=== PATIENT | male | born 1955 | race Caucasian/White ===

== ENCOUNTER 2017-08-17 10:36 | Inpatient (IN) | payer SELFPAY ==
[~2017-08-17] VITALS: Ht 170.2 cm; Wt 66.3 kg
[2017-08-17 11:11] LABS: BASO # 0.1 x10^3/uL (0.0-0.2); BASO % 0 % (0-3); EOS # 0.6 x10^3/uL (0.0-0.7); EOS % 3 % (0-3); HEMATOCRIT 40.1 % (39.0-53.0); LYMPH % 43 % (24-48); MEAN CORPUSCULAR HEMOGLOBIN 28 pg (25-35); MEAN CORPUSCULAR HGB CONC 32 g/dL (31-37); MEAN CORPUSCULAR VOLUME 85 fL (79-100); MONO % 5 % (0-9); NEUT # 8.8 x10^3uL (1.8-7.7); NEUT % 48 % (31-73); PLATELET COUNT 349 x10^3/uL (140-400); RED BLOOD COUNT 4.74 x10^6/uL (4.30-5.70); RED CELL DISTRIBUTION WIDTH 17.4 % (11.5-14.5); WHITE BLOOD COUNT 18.5 x10^3/uL (4.0-11.0)
[2017-08-17 11:15] LABS: HEMOGLOBIN ISTAT 13.3 gm/dL; POTASSIUM ISTAT 4.2 mmol/L (3.5-5.0)
--- NOTE | 2017-08-17 11:22 | EKG ---
[address] [address] Test Date: 2017-08-17 Test Time: 11:17:58 Pat Name: JHON MATHEW Department: Room: Gender: M Bolt Cutter: BOUBACAR : 1955 Requested By: DEMI DAVIS Order Number: [id number] Reading MD: Measurements Intervals [place] Rate: 58 P: 43 MD: 156 QRS: -26 QRSD: 88 T: 18 QT: 424 QTc: 420 Interpretive Statements SINUS RHYTHM LEFTWARD AXIS QRS(T) CONTOUR ABNORMALITY CONSIDER ANTEROSEPTAL MYOCARDIAL DAMAGE POSSIBLY ABNORMAL ECG RI6.01 No previous ECG available for comparison
[2017-08-17 11:54] LABS: % BANDS 1 % (0-9); % EOS 2 % (0-5); % LYMPHS 14 % (24-48); % MONOS 4 % (0-10); % SEGS 49 % (35-66); PLT ESTIMATE ADEQUATE (ADEQUATE)
[2017-08-17 11:55] LABS: PLATELET CLUMP PRESENT
[2017-08-17 12:13] LABS: BACTERIA,URINE 0 /HPF (0-FEW); BILIRUBIN,URINE NEG (NEG); CLARITY,URINE CLEAR; COLOR,URINE AMBER; GLUCOSE,URINE NEG (NEG); NITRITE,URINE NEG (NEG); RBC,URINE OCC /HPF (0-2); SQUAMOUS EPITHELIAL CELL,UR OCC /LPF; UROBILINOGEN,URINE 0.2 mg/dL (0.2 mg/dL); WBC,URINE 0 /HPF (0-4)
--- NOTE | 2017-08-17 13:03 | RAD ---
CHEST AP ONLY History: COUGH FOR A FEW WEEKS Comparison: None. Findings: Single view of the chest is submitted. Tip of the left costophrenic sulcus was not included on this exam. There is no infiltrate, pneumothorax, or effusion. The pericardial cardiac silhouette is within normal limits in size. Small symmetric opacities of the bilateral inferior hemithoraces are more likely due to nipple shadows than lung nodules. Impression: 1. There is no radiographic evidence of acute cardiopulmonary disease. Small opacities of the inferior hemithoraces bilaterally are likely due to nipple shadows than lung nodules. Electronically signed by: Savage Figueroa MD (08/17/2017 1:00 PM) [id number]
[2017-08-17 14:29] VITALS: BP 114/71
[2017-08-17] MEDS ORDERED: MAG HYDROX/AL HYDROX/SIMETH 30 ML ORAL.SUSP PO PRN (14:45)
[2017-08-17] MEDS ORDERED: ACETAMINOPHEN 325 MG TABLET PO PRN (14:45)
[2017-08-17] MEDS ORDERED: MAGNESIUM HYDROXIDE 2,400 MG/30 ML ORAL.SUSP. PO PRN (14:45)
[2017-08-17] MEDS ORDERED: METHYL SALICYLATE/MENTHOL TOPICAL OINTMENT 29GM TUBE. TP PRN (14:45)
[2017-08-17] MEDS ORDERED: TRAZ50TA15 PO (15:12)
[2017-08-17] MEDS ORDERED: FURO20TA3 PO (15:12)
[2017-08-17] MEDS ORDERED: LEVE500T56 PO (15:12)
[2017-08-17] MEDS ORDERED: ASPI-630 PO (15:12)
[2017-08-17] MEDS ORDERED: CARV6.252 PO (15:12)
[2017-08-17] MEDS ORDERED: pancrelipase PEG (15:12)
[2017-08-17] MEDS ORDERED: LISI10TA2 PO (15:12)
[2017-08-17] MEDS ORDERED: ESCITALOPRAM OX10 MG PO (15:12)
[2017-08-17] MEDS ORDERED: IPRA3AMP NEB (15:12)
[2017-08-17] MEDS ORDERED: ATOR10TA60 PO (15:12)
[2017-08-17] MEDS ORDERED: NUTR250L51 PO (15:12)
[2017-08-17] MEDS ORDERED: BUSP5TAB PO (15:12)
[2017-08-17 15:23] LABS: ALBUMIN 3.4 g/dL (3.4-5.0); DIRECT BILIRUBIN 0.1 mg/dL (0.0-0.2); MAGNESIUM 2.3 mg/dL (1.8-2.4); TOTAL BILIRUBIN 0.7 mg/dL (0.2-1.0); TOTAL PROTEIN 7.8 g/dL (6.4-8.2)
--- NOTE | 2017-08-17 16:01 | RAD ---
CT scan of the head without contrast 08/17/2017 Clinical History: Mental status changes. Recent fall. Technique: Unenhanced, contiguous, 5 mm axial sections were obtained through the head. One or more of the following individualized dose reduction techniques were utilized for this study: 1. Automated exposure control. 2. Adjustment of the mA and/or kV according to patient size. 3. Use of iterative reconstruction technique. Findings: No previous imaging studies are available for comparison. There is generalized parenchymal atrophy. Areas of decreased attenuation are seen within the periventricular and subcortical white matter of both cerebral hemispheres consistent with areas of small vessel ischemic disease. No acute parenchymal abnormality is seen. No extra-axial fluid collection is noted. No skull fracture is seen. Impression:. No acute intracranial abnormality is seen. Electronically signed by: Cj Alexandra MD (08/17/2017 3:58 PM) [facility]
[2017-08-17 16:23] VITALS: BP 103/65
--- NOTE | 2017-08-17 16:35 | ED.ADGEN ---
Past History Past Medical History: Anxiety, COPD, CVA, Hypertension, Other Past Surgical History: Other Alcohol Use: Rarely Drug Use: None Adult General Chief Complaint Chief Complaint Medical screening for psychiatric admission HPI HPI Patient is a 62-year-old male without medical complaint presents for medical screening evaluation for psychiatric admission. Patient reportedly is recently [facility] to [facility] and is having a difficult time adjusting. He has made comments to staff and family members that he plans on killing himself. Patient denies any such thoughts or intent at this time. He has a history of recent pneumonia, C. difficile infection and chronic leukemia. He denies diarrhea, abdominal pain. No fevers chills or sweats. Denies dizziness lightheadedness. reports chronic cough. No shortness of breath. No urinary frequency or dysuria. Patient has a feeding tube in place.No acute medical symptoms or complaints [] Review of Systems Review of Systems Review symptoms as per history of present illness. All other review symptoms are negative All other systems were reviewed and found to be within normal limits, except as documented in this note. Allergies Allergies Allergies Coded Allergies Type Severity Reaction Last Updated Verified No Known Drug Allergies 08/17/17 No Physical Exam Physical Exam Constitutional: Well developed, well nourished, no acute distress, non-toxic appearance. [] HENT: Normocephalic, atraumatic, bilateral external ears normal, oropharynx moist, nose normal. [] Eyes: PERRLA, EOMI, conjunctiva normal, no discharge. [] Neck: Normal range of motion, no midline tenderness, supple. [] Cardiovascular:Regular rate and rhythm. [] Lungs & Thorax: Bilateral breath sounds clear to auscultation [] Abdomen: Bowel sounds normal, soft, no tenderness. [] Skin: Warm, dry. [] Back: No tenderness, no CVA tenderness. [] Extremities: No tenderness, no edema. [] Neurologic: Alert and oriented X 2, normal motor function, normal sensory function, no focal deficits noted. [] Psychologic: Affect normal, judgement normal, mood normal. [] Current Patient Data Vital Signs Vital Signs Date Time Temp Pulse Resp B/P (MAP) Pulse Ox O2 Delivery O2 Flow Rate FiO2 08/17/17 13:26 76 18 131/62 (85) 93 Room Air 08/17/17 10:36 98.0 Lab Results Laboratory Tests Test 08/17/17 11:02 08/17/17 11:11 08/17/17 11:46 White Blood Count 18.5 x10^3/uL (4.0-11.0) H Red Blood Count 4.74 x10^6/uL (4.30-5.70) Hemoglobin 13.0 g/dL (13.0-17.5) Hematocrit 40.1 % (39.0-53.0) Mean Corpuscular Volume 85 fL (79-100) Mean Corpuscular Hemoglobin 28 pg (25-35) Mean Corpuscular Hemoglobin Concent 32 g/dL (31-37) Red Cell Distribution Width 17.4 % (11.5-14.5) H Platelet Count 349 x10^3/uL (140-400) Neutrophils (%) (Auto) 48 % (31-73) Lymphocytes (%) (Auto) 43 % (24-48) Monocytes (%) (Auto) 5 % (0-9) Eosinophils (%) (Auto) 3 % (0-3) Basophils (%) (Auto) 0 % (0-3) Neutrophils # (Auto) 8.8 x10^3uL (1.8-7.7) H Lymphocytes # (Auto) 8.0 x10^3/uL (1.0-4.8) H Monocytes # (Auto) 1.0 x10^3/uL (0.0-1.1) Eosinophils # (Auto) 0.6 x10^3/uL (0.0-0.7) Basophils # (Auto) 0.1 x10^3/uL (0.0-0.2) Segmented Neutrophils % 49 % (35-66) Band Neutrophils % 1 % (0-9) Lymphocytes % 14 % (24-48) L Atypical Lymphocytes % (Manual) 30 % (0-0) H Monocytes % 4 % (0-10) Eosinophils % 2 % (0-5) Platelet Estimate Adequate (ADEQUATE) Platelet Clumps, EDTA Present Magnesium Level 2.3 mg/dL (1.8-2.4) Total Bilirubin 0.7 mg/dL (0.2-1.0) Direct Bilirubin 0.1 mg/dL (0.0-0.2) Aspartate Amino Transferase (AST) 31 U/L (15-37) Alanine Aminotransferase (ALT) 45 U/L (16-63) Alkaline Phosphatase 115 U/L (46-116) Total Protein 7.8 g/dL (6.4-8.2) Albumin 3.4 g/dL (3.4-5.0) POC Hemoglobin 13.3 gm/dL POC Hematocrit 39 % POC Sodium 143 mmol/L (135-145) POC Potassium 4.2 mmol/L (3.5-5.0) POC Chloride 104 mmol/L (98-110) POC Total CO2 31 mmol/L (23-32) Anion Gap 13 mmol/L (6-14) POC Blood Urea Nitrogen 23 mg/dL (8-26) POC Creatinine 1.4 mg/dL (0.5-1.4) Glucose Level 104 mg/dL (60-99) H POC Ionized Calcium (Lora) 1.19 mmol/L (1.13-1.32) Urine Collection Type Unknown Urine Color Carina Urine Clarity Clear Urine pH 6.0 Urine Specific [place] 1.025 Urine Protein 30 mg/dl (NEG-TRACE) Urine Glucose (UA) Neg mg/dL (NEG) Urine Ketones (Stick) Neg mg/dL (NEG) Urine Blood Trace (NEG) Urine Nitrite Neg (NEG) Urine Bilirubin Neg (NEG) Urine Urobilinogen Dipstick 0.2 mg/dL (0.2 mg/dL) Urine Leukocyte Esterase Neg (NEG) Urine RBC Occ /HPF (0-2) Urine WBC 0 /HPF (0-4) Urine Squamous Epithelial Cells Occ /LPF Urine Bacteria 0 /HPF (0-FEW) Urine Cellular Casts Occ /HPF Urine Mucus Mod /LPF EKG EKG [EKG: reviewed no acute ST-T wave changes] Radiology/Procedures Radiology/Procedures [Chest x-ray: No acute findings per radiology report.] Course & Med Decision Making Course & Med Decision Making Pertinent Labs and Imaging studies reviewed. (See chart for details) [Patient with chronic cough history of leukemia. Noted to have elevated white blood cell count. Patient afebrile with stable vital signs. Patient's white blood cell count was disproportionate to possible urinary tract infectionor cough. Case reviewed with Dr. Boggs who will follow the patient on [facility].] Final Impression Final Impression [1. Medical screening exam 2. Leukocytosis 3. Ho/ leukemia] Problems: Dragon Disclaimer Dragon Disclaimer This electronic medical record was generated, in whole or in part, using a voice recognition dictation system. DEMI DAVIS DO Aug 17, 2017 16:35
--- NOTE | 2017-08-17 18:19 | PDOC ---
Exam Note: Robson Note: Please also refer to the separate dictated note~for this date of service dictated separately.~Patient seen individually. Discussed the patient with Nursing staff reviewed the chart.~Reviewed interim history and current functioning. Reviewed vital signs,~Labs/ Radiology~and current medications noted below. Continue current treatment with the changes noted in the dictated addendum note Assessment: Vital Signs: Vital Signs Date Time Temp Pulse Resp B/P (MAP) Pulse Ox O2 Delivery O2 Flow Rate FiO2 08/17/17 16:23 97.3 66 19 103/65 (78) 98 08/17/17 13:26 Room Air Labs: Laboratory Tests Test 08/17/17 11:02 08/17/17 11:11 08/17/17 11:46 White Blood Count 18.5 x10^3/uL (4.0-11.0) H Red Blood Count 4.74 x10^6/uL (4.30-5.70) Hemoglobin 13.0 g/dL (13.0-17.5) Hematocrit 40.1 % (39.0-53.0) Mean Corpuscular Volume 85 fL (79-100) Mean Corpuscular Hemoglobin 28 pg (25-35) Mean Corpuscular Hemoglobin Concent 32 g/dL (31-37) Red Cell Distribution Width 17.4 % (11.5-14.5) H Platelet Count 349 x10^3/uL (140-400) Neutrophils (%) (Auto) 48 % (31-73) Lymphocytes (%) (Auto) 43 % (24-48) Monocytes (%) (Auto) 5 % (0-9) Eosinophils (%) (Auto) 3 % (0-3) Basophils (%) (Auto) 0 % (0-3) Neutrophils # (Auto) 8.8 x10^3uL (1.8-7.7) H Lymphocytes # (Auto) 8.0 x10^3/uL (1.0-4.8) H Monocytes # (Auto) 1.0 x10^3/uL (0.0-1.1) Eosinophils # (Auto) 0.6 x10^3/uL (0.0-0.7) Basophils # (Auto) 0.1 x10^3/uL (0.0-0.2) Segmented Neutrophils % 49 % (35-66) Band Neutrophils % 1 % (0-9) Lymphocytes % 14 % (24-48) L Atypical Lymphocytes % (Manual) 30 % (0-0) H Monocytes % 4 % (0-10) Eosinophils % 2 % (0-5) Platelet Estimate Adequate (ADEQUATE) Platelet Clumps, EDTA Present Magnesium Level 2.3 mg/dL (1.8-2.4) Total Bilirubin 0.7 mg/dL (0.2-1.0) Direct Bilirubin 0.1 mg/dL (0.0-0.2) Aspartate Amino Transferase (AST) 31 U/L (15-37) Alanine Aminotransferase (ALT) 45 U/L (16-63) Alkaline Phosphatase 115 U/L (46-116) Total Protein 7.8 g/dL (6.4-8.2) Albumin 3.4 g/dL (3.4-5.0) POC Hemoglobin 13.3 gm/dL POC Hematocrit 39 % POC Sodium 143 mmol/L (135-145) POC Potassium 4.2 mmol/L (3.5-5.0) POC Chloride 104 mmol/L (98-110) POC Total CO2 31 mmol/L (23-32) Anion Gap 13 mmol/L (6-14) POC Blood Urea Nitrogen 23 mg/dL (8-26) POC Creatinine 1.4 mg/dL (0.5-1.4) Glucose Level 104 mg/dL (60-99) H POC Ionized Calcium (Lora) 1.19 mmol/L (1.13-1.32) Urine Collection Type Unknown Urine Color Carina Urine Clarity Clear Urine pH 6.0 Urine Specific [place] 1.025 Urine Protein 30 mg/dl (NEG-TRACE) Urine Glucose (UA) Neg mg/dL (NEG) Urine Ketones (Stick) Neg mg/dL (NEG) Urine Blood Trace (NEG) Urine Nitrite Neg (NEG) Urine Bilirubin Neg (NEG) Urine Urobilinogen Dipstick 0.2 mg/dL (0.2 mg/dL) Urine Leukocyte Esterase Neg (NEG) Urine RBC Occ /HPF (0-2) Urine WBC 0 /HPF (0-4) Urine Squamous Epithelial Cells Occ /LPF Urine Bacteria 0 /HPF (0-FEW) Urine Cellular Casts Occ /HPF Urine Mucus Mod /LPF Current Medications: Meds: Current Medications Acetaminophen (Tylenol) 650 mg PRN Q6HRS PRN PO PAIN / TEMP; Start 08/17/17 at 14:45 Multi-Ingredient Ointment (Analgesic [place]) 1 merline PRN QID PRN TP MUSCLE PAIN; Start 08/17/17 at 14:45 Al Hydroxide/Mg Hydroxide (Mylanta Plus Xs) 15 ml PRN AFTMEALHC PRN PO DYSPEPSIA; Start 08/17/17 at 14:45 Magnesium Hydroxide (Milk Of Magnesia) 2,400 mg PRN QHS PRN PO CONSTIPATION; Start 08/17/17 at 14:45 Buspirone HCl (Buspar) 5 mg Q8HRS PO ; Start 08/17/17 at 22:00 Levetiracetam (Keppra) 500 mg BID PO ; Start 08/17/17 at 21:00 Trazodone HCl (Desyrel) 50 mg QHS PO ; Start 08/17/17 at 21:00 Non-Formulary Medication (Escitalopram Oxalate ) 1 tab DAILY PO ; Start at 09:00; Stop 08/18/17 at 09:00; Status DC Citalopram Hydrobromide (CeleXA) 20 mg DAILY PO ; Start 08/18/17 at 09:00 Active Scripts Active Reported Nutren 2.0 (Nutritional Supplement) 250 Ml Liquid 237 Ml PO PRN AFTMEAL PRN 237mL via PEG tube prn for Nutritional Replacement Give only after meals if patient eats <50% of Meal Trazodone Hcl 50 Mg Tablet 1 Tab PO QHS [pancrelipase] 5000 Unit Tablet 10,000 Units PEG PRN PRN Give 2 capsules via PEG tube as needed for PEG Tube blockage. Lisinopril 10 Mg Tablet 1 Tab PO DAILY Escitalopram Oxalate 10 Mg Tablet 1 Tab PO DAILY Furosemide 20 Mg Tablet 1 Tab PO DAILY Keppra (Levetiracetam) 500 Mg Tablet 1 Tab PO BID Duoneb 0.5-3(2.5) Mg/3 Ml (Albuterol/Ipratropium) 3 Ml Ampul.neb 3 Ml NEB BID Carvedilol 6.25 Mg Tablet 1 Tab PO BID Buspirone Hcl 5 Mg Tablet 1 Tab PO Q8HRS Atorvastatin Calcium 10 Mg Tablet 10 Mg PO DAILY Aspirin 81 Mg Tab.chew 81 Mg PO DAILY I have reviewed the current psychotropics carefully including drug interactions. Risk benefit ratio favors no change other than as noted in my dictated progress note. Diagnosis: Problems: (1) Anxiety disorder (2) Major depressive disorder, recurrent episode BRANT BANUELOS MD Aug 17, 2017 18:19
--- NOTE | 2017-08-17 19:00 | HP ---
ADMIT DATE: 08/17/2017 PSYCHIATRIC ADMISSION HISTORY AND EVALUATION IDENTIFYING DATA: The patient is a 62-year-old male referred to us from [facility] on account of worsening symptoms of depression after the patient voiced suicidal ideation. Reportedly, he told his he was going to shoot himself. The detention had placed him on one-on-one status. Even though he did not have a gun available to shoot himself, the family believed he would find other means to end his life. This has what prompted the referral for admission. CHIEF COMPLAINT: "Yes, I have been depressed." The patient, however, minimizes suicidal ideation. HISTORY OF PRESENT ILLNESS: The patient relates symptoms of depression, feeling hopeless, helpless, worthless, but minimizes the suicidal ideation that prompted this admission. Nevertheless, he had made the above statements and plan as noted. He has had some sleep and appetite changes. Much of his worsening mood symptoms correlate with his worsening physical health, status post CVA, cerebral infarct, resultant dysphagia and PEG tube placement. No active homicidal ideation. No clear history of bipolar disorder. He does have short term memory deficits. PAST PSYCHIATRIC HISTORY: Positive for depression, anxiety. PAST MEDICAL HISTORY: Status post CVA, dysphagia, COPD, cachexia, recent C. diff from which he has recovered, and history of PEG tube. CODE STATUS: Full code. DRUG ALLERGIES: Negative. PRIMARY CARE PHYSICIAN: ____. SOCIAL HISTORY: No alcohol or drug abuse, physical, sexual or elder abuse history is noted. He is not known to be a perpetrator. He self propels himself in a wheelchair. DIET: Mechanical soft and he has been residing at the above facility for just about a week. REACTION TO HOSPITALIZATION: The patient accepting of it. ASSETS: Supportive family, stable living at the above facility. MENTAL STATUS EXAM: The patient was seen individually evening of 08/17/2017. He is in his wheelchair, oriented to himself. Speech: Moderate latency, often responses monosyllabic. Abstraction fair, computation impaired, language function intact, attention span short. Mood and affect depressed. He denies active suicidal ideation, somewhat paranoid. No hallucinations. IMPRESSION: Major depressive disorder, rule out psychotic features, recurrent; anxiety disorder, unspecified; impulse control disorder. Rest as above. PLAN: Admit to Geropsychiatry Unit at [facility]. I will see the patient daily individually from a psychiatric standpoint, medical followup per Dr. Boggs/Dr French. Continue the patient on his current psychotropics including trazodone 50 mg at bedtime, Celexa 20 mg a day, BuSpar 5 mg q.8 hours. We will observe him baseline, then make adjustments as clinically indicated. BRANT BANUELOS MD DR: GREG/nadia JOB#: [id number] / [id number]
[2017-08-17] MEDS ORDERED: NUTRITIONAL SUPPLEMENT PO PRN (19:30)
[2017-08-17] MEDS: CARVEDILOL 6.25 MG TABLET PO SCH (20:09)
[2017-08-17] MEDS: levETIRAcetam 500 MG TABLET PO SCH (20:09)
[2017-08-17] MEDS: traZODone 50 MG TABLET. PO SCH (20:09)
[2017-08-17] MEDS: busPIRone 5 MG TABLET. PO SCH (20:40)
--- NOTE | 2017-08-17 21:13 | PDOC ---
Exam Note: Robson Note: Please also refer to the separate dictated note~for this date of service dictated separately.~Patient seen individually. Discussed the patient with Nursing staff reviewed the chart.~Reviewed interim history and current functioning. Reviewed vital signs,~Labs/ Radiology~and current medications noted below. Continue current treatment with the changes noted in the dictated addendum note Assessment: Vital Signs: Vital Signs Date Time Temp Pulse Resp B/P (MAP) Pulse Ox O2 Delivery O2 Flow Rate FiO2 08/17/17 20:09 66 103/65 08/17/17 16:23 97.3 19 98 08/17/17 13:26 Room Air Labs: Laboratory Tests Test 08/17/17 11:02 08/17/17 11:11 08/17/17 11:46 White Blood Count 18.5 x10^3/uL (4.0-11.0) H Red Blood Count 4.74 x10^6/uL (4.30-5.70) Hemoglobin 13.0 g/dL (13.0-17.5) Hematocrit 40.1 % (39.0-53.0) Mean Corpuscular Volume 85 fL (79-100) Mean Corpuscular Hemoglobin 28 pg (25-35) Mean Corpuscular Hemoglobin Concent 32 g/dL (31-37) Red Cell Distribution Width 17.4 % (11.5-14.5) H Platelet Count 349 x10^3/uL (140-400) Neutrophils (%) (Auto) 48 % (31-73) Lymphocytes (%) (Auto) 43 % (24-48) Monocytes (%) (Auto) 5 % (0-9) Eosinophils (%) (Auto) 3 % (0-3) Basophils (%) (Auto) 0 % (0-3) Neutrophils # (Auto) 8.8 x10^3uL (1.8-7.7) H Lymphocytes # (Auto) 8.0 x10^3/uL (1.0-4.8) H Monocytes # (Auto) 1.0 x10^3/uL (0.0-1.1) Eosinophils # (Auto) 0.6 x10^3/uL (0.0-0.7) Basophils # (Auto) 0.1 x10^3/uL (0.0-0.2) Segmented Neutrophils % 49 % (35-66) Band Neutrophils % 1 % (0-9) Lymphocytes % 14 % (24-48) L Atypical Lymphocytes % (Manual) 30 % (0-0) H Monocytes % 4 % (0-10) Eosinophils % 2 % (0-5) Platelet Estimate Adequate (ADEQUATE) Platelet Clumps, EDTA Present Magnesium Level 2.3 mg/dL (1.8-2.4) Total Bilirubin 0.7 mg/dL (0.2-1.0) Direct Bilirubin 0.1 mg/dL (0.0-0.2) Aspartate Amino Transferase (AST) 31 U/L (15-37) Alanine Aminotransferase (ALT) 45 U/L (16-63) Alkaline Phosphatase 115 U/L (46-116) Total Protein 7.8 g/dL (6.4-8.2) Albumin 3.4 g/dL (3.4-5.0) POC Hemoglobin 13.3 gm/dL POC Hematocrit 39 % POC Sodium 143 mmol/L (135-145) POC Potassium 4.2 mmol/L (3.5-5.0) POC Chloride 104 mmol/L (98-110) POC Total CO2 31 mmol/L (23-32) Anion Gap 13 mmol/L (6-14) POC Blood Urea Nitrogen 23 mg/dL (8-26) POC Creatinine 1.4 mg/dL (0.5-1.4) Glucose Level 104 mg/dL (60-99) H POC Ionized Calcium (Lora) 1.19 mmol/L (1.13-1.32) Urine Collection Type Unknown Urine Color Carina Urine Clarity Clear Urine pH 6.0 Urine Specific [place] 1.025 Urine Protein 30 mg/dl (NEG-TRACE) Urine Glucose (UA) Neg mg/dL (NEG) Urine Ketones (Stick) Neg mg/dL (NEG) Urine Blood Trace (NEG) Urine Nitrite Neg (NEG) Urine Bilirubin Neg (NEG) Urine Urobilinogen Dipstick 0.2 mg/dL (0.2 mg/dL) Urine Leukocyte Esterase Neg (NEG) Urine RBC Occ /HPF (0-2) Urine WBC 0 /HPF (0-4) Urine Squamous Epithelial Cells Occ /LPF Urine Bacteria 0 /HPF (0-FEW) Urine Cellular Casts Occ /HPF Urine Mucus Mod /LPF Current Medications: Meds: Current Medications Acetaminophen (Tylenol) 650 mg PRN Q6HRS PRN PO PAIN / TEMP; Start 08/17/17 at 14:45 Multi-Ingredient Ointment (Analgesic [place]) 1 merline PRN QID PRN TP MUSCLE PAIN; Start 08/17/17 at 14:45 Al Hydroxide/Mg Hydroxide (Mylanta Plus Xs) 15 ml PRN AFTMEALHC PRN PO DYSPEPSIA; Start 08/17/17 at 14:45 Magnesium Hydroxide (Milk Of Magnesia) 2,400 mg PRN QHS PRN PO CONSTIPATION; Start 08/17/17 at 14:45 Buspirone HCl (Buspar) 5 mg Q8HRS PO Last administered on 08/17/17at 20:40; Start 08/17/17 at 22:00 Levetiracetam (Keppra) 500 mg BID PO Last administered on 08/17/17at 20:09; Start 08/17/17 at 21:00 Trazodone HCl (Desyrel) 50 mg QHS PO Last administered on 08/17/17at 20:09; Start 08/17/17 at 21:00 Non-Formulary Medication (Escitalopram Oxalate ) 1 tab DAILY PO ; Start at 09:00; Stop 08/18/17 at 09:00; Status DC Citalopram Hydrobromide (CeleXA) 20 mg DAILY PO ; Start 08/18/17 at 09:00 Aspirin (Children'S Aspirin) 81 mg DAILY PO ; Start 08/18/17 at 09:00 Atorvastatin Calcium (Lipitor) 10 mg DAILY PO ; Start 08/18/17 at 09:00 Carvedilol (Coreg) 6.25 mg BID PO Last administered on 08/17/17at 20:09; Start 08/17/17 at 21:00 Furosemide (Lasix) 20 mg DAILY PO ; Start 08/18/17 at 09:00 Albuterol/ Ipratropium (Duoneb) 3 ml BID NEB ; Start 08/17/17 at 21:00 Lisinopril (Prinivil) 10 mg DAILY PO ; Start 08/18/17 at 09:00 Non-Formulary Medication (Nutritional Supplement (Nutren 2.0)) 237 ml PRN AFTMEAL PRN PO PER PROTOCOL; Start 08/17/17 at 19:30; Stop 08/17/17 at 19:37; Status DC Non-Formulary Medication ([pancrelipase] ) 10,000 units PRN PRN PEG PER PROTOCOL ; Start 08/17/17 at 19:30; Status UNV Active Scripts Active Reported Nutren 2.0 (Nutritional Supplement) 250 Ml Liquid 237 Ml PO PRN AFTMEAL PRN 237mL via PEG tube prn for Nutritional Replacement Give only after meals if patient eats <50% of Meal Trazodone Hcl 50 Mg Tablet 1 Tab PO QHS [pancrelipase] 5000 Unit Tablet 10,000 Units PEG PRN PRN Give 2 capsules via PEG tube as needed for PEG Tube blockage. Lisinopril 10 Mg Tablet 1 Tab PO DAILY Escitalopram Oxalate 10 Mg Tablet 1 Tab PO DAILY Furosemide 20 Mg Tablet 1 Tab PO DAILY Keppra (Levetiracetam) 500 Mg Tablet 1 Tab PO BID Duoneb 0.5-3(2.5) Mg/3 Ml (Albuterol/Ipratropium) 3 Ml Ampul.neb 3 Ml NEB BID Carvedilol 6.25 Mg Tablet 1 Tab PO BID Buspirone Hcl 5 Mg Tablet 1 Tab PO Q8HRS Atorvastatin Calcium 10 Mg Tablet 10 Mg PO DAILY Aspirin 81 Mg Tab.chew 81 Mg PO DAILY I have reviewed the current psychotropics carefully including drug interactions. Risk benefit ratio favors no change other than as noted in my dictated progress note. Diagnosis: Problems: (1) Medical clearance for psychiatric admission (2) Anxiety disorder (3) Major depressive disorder, recurrent episode BRANT BANUELOS MD Aug 17, 2017 21:13
[2017-08-17] MEDS: IPRATRPIUM/ALBUTEROL 0.5/2.5MG 3 ML NEBU. NEB SCH (21:35)
--- NOTE | 2017-08-17 23:48 | CONS ---
DATE OF CONSULTATION: 08/17/2017 REASON FOR CONSULTATION: Medical management. HISTORY OF PRESENT ILLNESS:. The pain is a 62-year-old male patient who is a fpc resident at [place] and who apparently told his that he was going to shoot himself. His sister believes that he would find another means and he was admitted to [facility] for inpatient psychiatric stabilization. PAST MEDICAL HISTORY: Significant for right middle cerebral artery territory infarct with left-sided hemiplegia, dysphagia, COPD, cachexia, C. diff colitis. PAST PSYCHIATRIC HISTORY: Significant for major depressive disorder, anxiety, and insomnia. PAST SURGICAL HISTORY: Significant for percutaneous endoscopic gastrostomy tube placement. ALLERGIES: He has no known drug allergies. MEDICATIONS: He is currently on following medications: He is on DuoNeb 0.5-2.5 mg 3 mL by nebulizer 4 times a day, atorvastatin calcium 10 mg at bedtime, carvedilol 6.25 mg twice a day, lisinopril 10 mg once a day, aspirin 81 mg once a day, Keppra 500 mg twice a day, escitalopram oxalate 10 mg once a day, trazodone 50 mg at bedtime, buspirone 5 mg every 8 hours. He is on Nutren 237 mL p.r.n. after meals. He is on furosemide 20 mg once a day, and ____ 10,000 units, he takes 2 capsules as needed. FAMILY HISTORY: Unremarkable. SOCIAL HISTORY: He is , said he has about 12 grandchildren. He is an ex-smoker, quit in 1982. He used to be a pipeline engineer. Does not drink alcohol or use any recreational drugs. PHYSICAL EXAMINATION: GENERAL: When I examined him this afternoon, he looked well and was clearly in no apparent respiratory distress. He was pale, no jaundice, cyanosis, or thyromegaly. No jugular venous distention. No limb edema. VITAL SIGNS: His heart rate was 66, blood pressure 103/65, temperature was 97.3, respiratory rate was 19, and oxygen saturation was 98%. HEAD, EYES, EARS, NOSE, AND THROAT: Normocephalic, atraumatic. NECK: Supple. HEART: Showed normal first and second heart sounds with no gallop, rub, or murmur. CHEST: Clear to auscultation. No crepitation or rhonchi. ABDOMEN: Distended, soft, nontender. No guarding or rigidity. No organomegaly. All hernial orifice intact. Bowel sounds normal. NEUROLOGIC: He was awake, alert, responding appropriately. All his cranial nerves are intact. He has left-sided hemiplegia. He is mostly wheelchair bound. He has percutaneous endoscopic gastrostomy tube. LABORATORY DATA: Showed that his serum sodium was 143, potassium 4.2, chloride 104, bicarbonate 31, anion gap of 13, BUN 23, creatinine 1.4. His glucose was 104, calcium was 119. His magnesium was 2.3. Total bilirubin, AST, ALT, alkaline phosphatase were normal. Total protein was 7.8, albumin was 3.4. His white cell count was 18,500, hemoglobin 13, hematocrit 40, MCV 85, and platelet count 249,000 with a manual differential showed 48% polymorphs, 53%, lymphocytes, of the lymphocytes 30% were atypical. His urinalysis was essentially unremarkable. It was negative for nitrite, negative for leukocyte esterase, no rbc's, no wbc's, and no bacteria. His chest x-ray showed that there is no radiographic evidence of acute cardiopulmonary disease, small opacities due to nipple shadows and lung nodules. The CT scan of the head showed that there is generalized parenchymal atrophy, areas of decreased attenuation are seen within the periventricular and subcortical white matter of both cerebral hemispheres consistent with area of small vessel ischemic disease, no acute parenchymal abnormality seen, no extraaxial fluid collection, no skull fracture is seen. ASSESSMENT AND PLAN: So all in all, this is a 62-year-old male patient, a resident at [facility], who apparently threatened to shoot himself and told that his . His sister apparently believed that he would find another means of killing himself. Medically, he has hypertension, hyperlipidemia, and has right middle cerebral artery territory infarct with left-sided hemiplegia and dysphagia. He has a percutaneous endoscopic gastrostomy tube, but he is on mechanically soft diet. All in all, he seemed to be medically stable. I would continue his current medications. He seemed to have also chronic lymphatic leukemia, apparently he was diagnosed with that on his [birth year] on [birth year] but he has not received any chemotherapy Thank you, Dr. Gonzalez, for allowing me to participate in the care of this patient. SHELIA RASMUSSEN MD DR: Yissel JOB#: [id number] / [id number]
[2017-08-18] MEDS: busPIRone 5 MG TABLET. PO SCH ×3 (04:25→19:45)
[2017-08-18 05:46] VITALS: BP 123/70
[2017-08-18 07:17] LABS: HEMOGLOBIN A1C 5.5 % (4.8-5.6); T3 TOTAL 109 ng/dL (71-180); THYROXINE 8.7 ug/dL (4.5-12.0)
[2017-08-18] MEDS ORDERED: LIPASE/PROTEAS/AMYLAS 10/34/55 CAPSULE.DR. PEG PRN (08:00)
[2017-08-18] MEDS: CARVEDILOL 6.25 MG TABLET PO SCH ×2 (08:30→19:45)
[2017-08-18] MEDS: levETIRAcetam 500 MG TABLET PO SCH ×2 (08:30→19:45)
[2017-08-18] MEDS: LISINOPRIL 10 MG TABLET PO SCH (08:30)
[2017-08-18] MEDS: CITALOPRAM 20 MG TABLET. PO SCH (08:31)
[2017-08-18] MEDS: ASPIRIN 81 MG TAB.CHEW PO SCH (08:31)
[2017-08-18] MEDS: ATORVASTATIN CALCIUM 10 MG TABLET. PO SCH (08:31)
[2017-08-18] MEDS: FUROSEMIDE 20 MG TABLET PO SCH (08:31)
[2017-08-18] MEDS ORDERED: NON FORMULARY ITEM (Escitalopram Oxalate 1 TAB) PO SCH (09:00)
[2017-08-18] MEDS: IPRATRPIUM/ALBUTEROL 0.5/2.5MG 3 ML NEBU. NEB SCH ×2 (11:18→21:07)
[2017-08-18 14:45] LABS: THYROID STIM HORMONE (TSH) 1.245 uIU/mL (0.358-3.740)
[2017-08-18 16:14] VITALS: BP 104/65
[2017-08-18] MEDS: traZODone 50 MG TABLET. PO SCH (19:45)
--- NOTE | 2017-08-18 20:57 | PDOC ---
Exam Note: Robson Note: Please also refer to the separate dictated note~for this date of service dictated separately.~Patient seen individually. Discussed the patient with Nursing staff reviewed the chart.~Reviewed interim history and current functioning. Reviewed vital signs,~Labs/ Radiology~and current medications noted below. Continue current treatment with the changes noted in the dictated addendum note Assessment: Vital Signs: Vital Signs Date Time Temp Pulse Resp B/P (MAP) Pulse Ox O2 Delivery O2 Flow Rate FiO2 08/18/17 20:35 95 Room Air 08/18/17 19:45 72 104/65 08/18/17 16:14 99.4 15 I&O Intake and Output 08/18/17 07:00 Intake Total 120 ml Balance 120 ml Intake Oral 120 ml Current Medications: Meds: Current Medications Acetaminophen (Tylenol) 650 mg PRN Q6HRS PRN PO PAIN / TEMP; Start 08/17/17 at 14:45 Multi-Ingredient Ointment (Analgesic [place]) 1 merline PRN QID PRN TP MUSCLE PAIN; Start 08/17/17 at 14:45 Al Hydroxide/Mg Hydroxide (Mylanta Plus Xs) 15 ml PRN AFTMEALHC PRN PO DYSPEPSIA; Start 08/17/17 at 14:45 Magnesium Hydroxide (Milk Of Magnesia) 2,400 mg PRN QHS PRN PO CONSTIPATION; Start 08/17/17 at 14:45 Buspirone HCl (Buspar) 5 mg Q8HRS PO Last administered on 08/18/17at 19:45; Start 08/17/17 at 22:00 Levetiracetam (Keppra) 500 mg BID PO Last administered on 08/18/17at 19:45; Start 08/17/17 at 21:00 Trazodone HCl (Desyrel) 50 mg QHS PO Last administered on 08/18/17at 19:45; Start 08/17/17 at 21:00 Non-Formulary Medication (Escitalopram Oxalate ) 1 tab DAILY PO ; Start at 09:00; Stop 08/18/17 at 09:00; Status DC Citalopram Hydrobromide (CeleXA) 20 mg DAILY PO Last administered on 08/18/17at 08:31; Start 08/18/17 at 09:00 Aspirin (Children'S Aspirin) 81 mg DAILY PO Last administered on 08/18/17 08: 31; Start 08/18/17 at 09:00 Atorvastatin Calcium (Lipitor) 10 mg DAILY PO Last administered on 08/18/17at 08 :31; Start 08/18/17 at 09:00 Carvedilol (Coreg) 6.25 mg BID PO Last administered on 08/18/17at 19:45; Start 08/17/17 at 21:00 Furosemide (Lasix) 20 mg DAILY PO Last administered on 08/18/17at 08:31; Start 08/18/17 at 09:00 Albuterol/ Ipratropium (Duoneb) 3 ml BID NEB Last administered on 08/18/17at 11: 18; Start 08/17/17 at 21:00 Lisinopril (Prinivil) 10 mg DAILY PO Last administered on 08/18/17at 08:30; Start 08/18/17 at 09:00 Non-Formulary Medication (Nutritional Supplement (Nutren 2.0)) 237 ml PRN AFTMEAL PRN PO PER PROTOCOL; Start 08/17/17 at 19:30; Stop 08/17/17 at 19:37; Status DC Amylase/Lipase/ Protease (Zenpep 10,000) 1 cap PRN DAILY PRN PEG PEG TUBE CLOGS ; Start 08/18/17 at 08:00 Active Scripts Active Reported Nutren 2.0 (Nutritional Supplement) 250 Ml Liquid 237 Ml PO PRN AFTMEAL PRN 237mL via PEG tube prn for Nutritional Replacement Give only after meals if patient eats <50% of Meal Trazodone Hcl 50 Mg Tablet 1 Tab PO QHS [pancrelipase] 5000 Unit Tablet 10,000 Units PEG PRN PRN Give 2 capsules via PEG tube as needed for PEG Tube blockage. Lisinopril 10 Mg Tablet 1 Tab PO DAILY Escitalopram Oxalate 10 Mg Tablet 1 Tab PO DAILY Furosemide 20 Mg Tablet 1 Tab PO DAILY Keppra (Levetiracetam) 500 Mg Tablet 1 Tab PO BID Duoneb 0.5-3(2.5) Mg/3 Ml (Albuterol/Ipratropium) 3 Ml Ampul.neb 3 Ml NEB BID Carvedilol 6.25 Mg Tablet 1 Tab PO BID Buspirone Hcl 5 Mg Tablet 1 Tab PO Q8HRS Atorvastatin Calcium 10 Mg Tablet 10 Mg PO DAILY Aspirin 81 Mg Tab.chew 81 Mg PO DAILY I have reviewed the current psychotropics carefully including drug interactions. Risk benefit ratio favors no change other than as noted in my dictated progress note. Diagnosis: Problems: (1) Medical clearance for psychiatric admission (2) Anxiety disorder (3) Major depressive disorder, recurrent episode (4) Impulse control disorder BRANT BANUELOS MD Aug 18, 2017 20:57
--- NOTE | 2017-08-19 01:41 | PN ---
DATE: 08/18/2017 This note covers elements not covered in my initial note 08/18/2017. SUBJECTIVE: The patient was staffed at a treatment team meeting with the entire team morning of 08/18/2017. Seen individually evening of 08/18/2017. Per nursing report, the patient has not voiced any suicidal ideation whatsoever since admission. His labs are abnormal. Dr. Boggs believes he may have leukemia. Also discussed with Sherry, nurse life sciences manager. He is tolerating the change of Lexapro to Celexa. REVIEW OF SYSTEMS: Ambulation impaired, in his wheelchair. No CV, , pulmonary, eye system symptoms on review. MENTAL STATUS EXAM: Oriented to himself and situation. Speech moderate latency, often responses monosyllabic. Abstraction fair, computation somewhat impaired. Mood and affect withdrawn, but he denies any suicidal ideation whatsoever. I questioned him on this repeatedly this evening. IMPRESSION: Major depressive disorder, in partial remission. PLAN: Continue current psychotropics. The patient could transition back to the residential. Some of his reaction and suicidal ideation with a consequence of the changes in his medical condition and he is more accepting of this. Social service staff will help transition back to the residential. BRANT BANUELOS MD DR: GREG/nadia JOB#: [id number] / [id number]
[2017-08-19] MEDS ORDERED: METH29OI TP (03:07)
[2017-08-19] MEDS ORDERED: ACET325T9 PO (03:08)
[2017-08-19] MEDS ORDERED: MAG30ORA2 PO (03:12)
[2017-08-19] MEDS ORDERED: MAGN400O7 PO (03:13)
[2017-08-19] MEDS ORDERED: LIPA1CAP12 PEG (03:15)
[2017-08-19] MEDS: busPIRone 5 MG TABLET. PO SCH (05:34)
[2017-08-19 05:52] VITALS: BP 127/72
[2017-08-19 08:23] VITALS: BP 127/72
[2017-08-19] MEDS: FUROSEMIDE 20 MG TABLET PO SCH (08:23)
[2017-08-19] MEDS: LISINOPRIL 10 MG TABLET PO SCH (08:23)
[2017-08-19] MEDS: CARVEDILOL 6.25 MG TABLET PO SCH (08:23)
[2017-08-19] MEDS: CITALOPRAM 20 MG TABLET. PO SCH (08:23)
[2017-08-19] MEDS: ATORVASTATIN CALCIUM 10 MG TABLET. PO SCH (08:23)
[2017-08-19] MEDS: ASPIRIN 81 MG TAB.CHEW PO SCH (08:23)
[2017-08-19] MEDS: levETIRAcetam 500 MG TABLET PO SCH (08:23)
[2017-08-19] MEDS ORDERED: CHOLECALCIFEROL (VITAMIN D3) 50,000 UNIT CAPSULE PO SCH (09:00)
[2017-08-19 10:02] LABS: % ATYL 30 % (0-0)
[2017-08-19] MEDS: IPRATRPIUM/ALBUTEROL 0.5/2.5MG 3 ML NEBU. NEB SCH (11:21)
--- NOTE | 2017-08-19 20:44 | PDOC ---
Exam Note: Robson Note: Please also refer to the separate dictated note~for this date of service dictated separately.~Patient seen individually. Discussed the patient with Nursing staff reviewed the chart.~Reviewed interim history and current functioning. Reviewed vital signs,~Labs/ Radiology~and current medications noted below. Continue current treatment with the changes noted in the dictated addendum note Assessment: Vital Signs: Vital Signs Date Time Temp Pulse Resp B/P (MAP) Pulse Ox O2 Delivery O2 Flow Rate FiO2 08/19/17 11:21 99 Room Air 08/19/17 08:23 62 127/72 08/19/17 05:52 98.2 18 I&O Intake and Output 08/19/17 07:00 Intake Total 840 ml Balance 840 ml Intake Oral 840 ml Current Medications: Meds: Current Medications Acetaminophen (Tylenol) 650 mg PRN Q6HRS PRN PO PAIN / TEMP; Start 08/17/17 at 14:45; Stop 08/19/17 at 12:28; Status DC Multi-Ingredient Ointment (Analgesic [place]) 1 lorelei PRN QID PRN TP MUSCLE PAIN; Start 08/17/17 at 14:45; Stop 08/19/17 at 12:28; Status DC Al Hydroxide/Mg Hydroxide (Mylanta Plus Xs) 15 ml PRN AFTMEALHC PRN PO DYSPEPSIA; Start 08/17/17 at 14:45; Stop 08/19/17 at 12:28; Status DC Magnesium Hydroxide (Milk Of Magnesia) 2,400 mg PRN QHS PRN PO CONSTIPATION; Start 08/17/17 at 14:45; Stop 08/19/17 at 12:28; Status DC Buspirone HCl (Buspar) 5 mg Q8HRS PO Last administered on 08/19/17at 05:34; Start 08/17/17 at 22:00; Stop 08/19/17 at 12:28; Status DC Levetiracetam (Keppra) 500 mg BID PO Last administered on 08/19/17at 08:23; Start 08/17/17 at 21:00; Stop 08/19/17 at 12:28; Status DC Trazodone HCl (Desyrel) 50 mg QHS PO Last administered on 08/18/17at 19:45; Start 08/17/17 at 21:00; Stop 08/19/17 at 12:28; Status DC Non-Formulary Medication (Escitalopram Oxalate ) 1 tab DAILY PO ; Start at 09:00; Stop 08/18/17 at 09:00; Status DC Citalopram Hydrobromide (CeleXA) 20 mg DAILY PO Last administered on 08/19/17 08:23; Start 08/18/17 at 09:00; Stop 08/19/17 at 12:28; Status DC Aspirin (Children'S Aspirin) 81 mg DAILY PO Last administered on 08/19/17 08: 23; Start 08/18/17 at 09:00; Stop 08/19/17 at 12:28; Status DC Atorvastatin Calcium (Lipitor) 10 mg DAILY PO Last administered on 08/19/17 08 :23; Start 08/18/17 at 09:00; Stop 08/19/17 at 12:28; Status DC Carvedilol (Coreg) 6.25 mg BID PO Last administered on 08/19/17 08:23; Start 08/17/17 at 21:00; Stop 08/19/17 at 12:28; Status DC Furosemide (Lasix) 20 mg DAILY PO Last administered on 08/19/17 08:23; Start 08/18/17 at 09:00; Stop 08/19/17 at 12:28; Status DC Albuterol/ Ipratropium (Duoneb) 3 ml BID NEB Last administered on 08/19/17at 11: 21; Start 08/17/17 at 21:00; Stop 08/19/17 at 12:28; Status DC Lisinopril (Prinivil) 10 mg DAILY PO Last administered on 08/19/17 08:23; Start 08/18/17 at 09:00; Stop 08/19/17 at 12:28; Status DC Non-Formulary Medication (Nutritional Supplement (Nutren 2.0)) 237 ml PRN AFTMEAL PRN PO PER PROTOCOL; Start 08/17/17 at 19:30; Stop 08/17/17 at 19:37; Status DC Amylase/Lipase/ Protease (Zenpep 10,000) 1 cap PRN DAILY PRN PEG PEG TUBE CLOGS ; Start 08/18/17 at 08:00; Stop 08/19/17 at 12:28; Status DC Vitamin D (Vitamin D3) 50,000 unit WEEKLY PO Last administered on 08/19/17at 08: 24; Start 08/19/17 at 09:00; Stop 08/19/17 at 12:28; Status DC Active Scripts Active Reported Zenpep 10,000 Units Capsule (Lipase/Protease/Amylase) 1 Each Capsule. 1 Cap PEG PRN DAILY PRN Milk Of Magnesia (Magnesium Hydroxide) 400 Mg/5 Ml Oral.susp 2,400 Mg PO PRN QHS PRN Mag-Al Plus Xs Suspension (Mag Hydrox/Al Hydrox/Simeth) 30 Ml Oral.susp 15 Ml PO PRN AFTMEALHC PRN Tylenol (Acetaminophen) 325 Mg Tablet 650 Mg PO PRN Q6HRS PRN Analgesic [place] (Methyl Salicylate/Menthol) 28 Gm Oint...g. 1 [place] TP PRN QID PRN Nutren 2.0 (Nutritional Supplement) 250 Ml Liquid 237 Ml PO PRN AFTMEAL PRN 237mL via PEG tube prn for Nutritional Replacement Give only after meals if patient eats <50% of Meal Trazodone Hcl 50 Mg Tablet 50 Mg PO QHS Lisinopril 10 Mg Tablet 10 Mg PO DAILY Escitalopram Oxalate 10 Mg Tablet 10 Mg PO DAILY Furosemide 20 Mg Tablet 20 Mg PO DAILY Keppra (Levetiracetam) 500 Mg Tablet 500 Mg PO BID Duoneb 0.5-3(2.5) Mg/3 Ml (Albuterol/Ipratropium) 3 Ml Ampul.neb 3 Ml NEB BID Carvedilol 6.25 Mg Tablet 6.25 Mg PO BID Buspirone Hcl 5 Mg Tablet 5 Mg PO Q8HRS Atorvastatin Calcium 10 Mg Tablet 10 Mg PO DAILY Aspirin 81 Mg Tab.chew 81 Mg PO DAILY I have reviewed the current psychotropics carefully including drug interactions. Risk benefit ratio favors no change other than as noted in my dictated progress note. Diagnosis: Problems: (1) Anxiety disorder (2) Major depressive disorder, recurrent episode (3) Impulse control disorder BRANT BANUELOS MD Aug 19, 2017 20:44
--- NOTE | 2017-08-19 21:00 | PN ---
DATE: 08/19/2017 NO DICTATION. MAN Deyanira BANUELOS MD DR: Hilda JOB#: [id number] / [id number]
--- NOTE | 2017-08-21 09:16 | DS ---
DATE OF DISCHARGE: 08/19/2017 DISCHARGE SUMMARY/PSYCHIATRIC PROGRESS NOTE REASON FOR ADMISSION: Please refer to the admission history for details. Briefly, the patient is a 62-year-old male referred to us from [facility] on account of voicing suicidal ideation with worsening mood symptoms consequent to his multiple medical problems. The patient has had cerebral infarct, has dysphagia, dysarthria, hemiplegia, PEG tube placement, hypertension, COPD, cachexia, status post C. diff colitis. He had been overwhelmed by all of this made suicidal statements, was on one-on-one status at the [facility] and then referred to us. SIGNIFICANT FINDINGS AND CLINICAL COURSE: Following admission, the patient was seen daily individually by myself. He was admitted on 08/17/2017 and discharge was 08/19/2017. Medical followup with Dr. Rashid/Dr. Boggs/Dr. French. His psychotropics were adjusted and he responded to Celexa 20 mg a day, remained on Keppra 500 b.i.d., trazodone 50 mg at bedtime for insomnia, BuSpar 5 mg q.8 hours. He consistently denied suicidal ideation and was more positive about his future despite his medical problems. He was discharged 08/19/2017 back to [facility] for ongoing psychiatric and medical management. FINAL DIAGNOSES: Major depressive disorder, recurrent, in partial remission; anxiety disorder, unspecified; adjustment disorder with depressed mood and anxiety in partial remission. Rest unchanged from admission. DISCHARGE MEDICATIONS: Please refer to the . DISCHARGE INSTRUCTIONS: Outpatient psychiatric and medical followup at the [facility]. BRANT BANUELOS MD DR: GREG/nadia JOB#: [id number] / [id number]
== END 2017-08-19 12:27 | disposition home or self-care (01) | DRG 885 ==
LOC: ER 10:36 → GEROPSY 14:00
PROVIDERS: ADMIT Psychiatry & Neurology Psychiatry; ATTEND Psychiatry & Neurology Psychiatry
DX: F33.9 Major depressive disorder, recurrent, unspecified (principal); C95.10 Chronic leukemia of unspecified cell type not having achieved remission; R45.851 Suicidal ideations; G81.94 Hemiplegia, unspecified affecting left nondominant side; E78.5 Hyperlipidemia, unspecified; F33.41 Major depressive disorder, recurrent, in partial remission; F63.9 Impulse disorder, unspecified; I10 Essential (primary) hypertension; F43.23 Adjustment disorder with mixed anxiety and depressed mood; F41.9 Anxiety disorder, unspecified; J44.9 Chronic obstructive pulmonary disease, unspecified; R13.10 Dysphagia, unspecified; Z02.89 Encounter for other administrative examinations; Z79.899 Other long term (current) drug therapy; Z86.73 Personal history of transient ischemic attack (TIA), and cerebral infarction without residual deficits; Z87.01 Personal history of pneumonia (recurrent); Z86.19 Personal history of other infectious and parasitic diseases; Z87.891 Personal history of nicotine dependence; Z93.1 Gastrostomy status
CPT/HCPCS: 36415; 70450; 71045; 80047; 80061; 80076; 81001; 82306; 82607; 83036; 83540; 83550; 83735; 84436; 84443; 84480; 85007; 85025; 86593; 93005; 94640; J7620; 99285-25